=== PATIENT | female | born 1980 | race Caucasian/White ===

== ENCOUNTER 2023-05-21 09:23 | Outpatient (CLI) | payer OTHER, SELFPAY ==
[2023-05-21 10:13] LABS: Prothrombin Time 13.4 Seconds (11.1-14.7)
[2023-05-21 10:17] LABS: Add Urine Microscopic? YES; Appearance Urine Clear (Clear); Bacteria Urine None Seen /hpf; Bilirubin Urine Negative (Negative); Blood Urine 1+ (Negative); Color Urine Yellow (Yellow); Glucose Urine UA Negative (Negative); Ketones Urine Negative (Negative); Leukocyte Esterase Ur Negative LEU/UL (Negative); Nitrate Urine Negative (Negative); Non Pathogenic Casts 0-2; Protein Urine Negative (Negative); Specific Grav Ur 1.013 (1.001-1.035); Squamous Epithelial Cell Urine Few /hpf (Few); Urobilinogen Urine 0.2 mg/dL (<2.0); WBC Urine 0-5 /hpf
== END 2023-05-21 09:24 | disposition home or self-care (01) ==
PROVIDERS: PCP Internal Medicine; Visit Provider Urology
DX: N20.0 Calculus of kidney (principal)
CPT/HCPCS: 36415; 81001; 85610; 85730

== ENCOUNTER 2023-05-22 01:38 | Day surgery (SDC) | payer OTHER, SELFPAY ==
[2023-05-20 14:29] VITALS: BMI 36.1
--- NOTE | 2023-05-20 14:59 | PC.NURSE ---
Addendum entered by Christiano Garrett RN 05/21/23 09:59: PT INSTRUCTED TO NOT TAKE ANY MORE TORADOL PRIOR TO SURGERY. Addendum entered by Wendy Mendez RN 05/20/23 15:10: CORRECTION: TORADOL NEEDED. HYDROCODONE NEEDED. NOT TRAMADOL Original Note: Report to the Outpatient Waiting Room, entrance under the green pavilion located off [facility], at time __12:30_PM____ on date __05/22/23 . Planned Procedure Time: 2:30PM . Time changes happen often and if your time is changed the preop area will call you the afternoon before. - You and your visitor will be asked to self-screen and do not enter if you have any COVID symptoms. - A mask is optional within the hospital at this time. Patients may have clear liquids (water, carbonated beverages, clear teas, apple juice) until 3 hours prior to surgery (11:30AM)with a maximum of 20 ounces. - No food from midnight until time of surgery - Take the following medications with a SIP of water the morning of surgery: ___TRAMADOL NEEDED DO NOT STOP ANY OF YOUR OTHER PRESCRIPTION MEDICATIONS PRIOR TO SURGERY ?EXCEPT THE FOLLOWING Medications to discontinue per physician N/A Date to take last dose___N/A Please no make-up, nail salvadorean, hairspray, perfume, deodorant, or body powder the day of surgery. No jewelry (including any body piercings) or valuables the day of surgery, leave them at home. Please take a shower or bath the night before, or the morning of, surgery with an antibacterial soap. Wear comfortable, loose fitting clothing. - Jewelry must be removed prior to entering the operating room. Rings and piercings that are not removed may be cut off. - The hospital will not accept responsibility for valuables. - Please leave all valuables, including medications, at home the day of surgery. If you are going home after surgery, a licensed road oiling truck driver must drive you home. - NO public transportation without another adult if you receive anesthesia. - We recommend that an adult stay with you for 24 hours following discharge. - We also recommend that you do not drive, make important decision, drink alcoholic beverages, or take any drugs that were not prescribed by your health care provider for at least 24 hours after your discharge time. Follow any additional instructions given to you from your surgeon. If you or anyone in your household have experienced Covid symptoms in the past week, please notify your surgeon or the nurse liaison at the phone number below for possible testing. Telephone instructions given to _CHRISTIANO__and asked if any additional questions and then verbalized understanding. Patient advised to call surgeon office or pre surgery nurse liaison [phone] if any additional questions.
[2023-05-22] VITALS (7 sets, daily range): BP systolic 109–145; BP diastolic 67–92; PULSE 56–91; RESP 14–18; TEMP 36.2–36.7; O2SAT 95–100
--- NOTE | ~2023-05-22 | XR_ITS ---
EXAMINATION: XR abdomen/kub 1V INDICATION: Left kidney stone TECHNIQUE: Supine views of the abdomen were obtained on 2 radiographs. COMPARISON: None FINDINGS: There is an 11 mm stone in the left kidney lower pole. There are phleboliths in the pelvis. No additional urolithiasis is identified. The bowel gas pattern is normal. The visualized lung bases are clear. Surgical clips in the right upper quadrant are likely from prior cholecystectomy. IMPRESSION: 1. 11 mm stone of the left kidney lower pole. Reviewed, dictated and finalized at location B.
--- NOTE | 2023-05-22 07:15 | WPDHPUPDATE1 ---
History and Physical Update Update Date/Time: 05/22/23 07:15 History and Physical has been reviewed, including an updated exam of the patient. There are NO changes in the patient's condition. Risks, benefits, and alternatives have been discussed and questions answered. Patient agrees to proceed with procedure.
--- NOTE | 2023-05-22 09:38 | WPDANESEPPF ---
Anes - Initial Pre Proc Eval Procedure: Operation Date: 05/22/23 14:30 Proposed Procedures p Left Extracorporeal Shock Wave Lithotripsy - Kali Cadet MD s Cystoscopy, Left Ureteroscopy with Stone Extraction, Left Ureteral Stent Placement - Kali Cadet MD Date/Time: 05/22/23 09:38 Surgeon: Kali Cadet MD Pre Op Diagnosis: left kidney stone Patient Data Age: 42 Gender: F Height: 1.73 m Weight: 108 kg Allergies Allergy/AdvReac Type Severity Reaction Status Date / Time Sulfa (Sulfonamide Allergy Intermediate Hives Verified 05/22/23 12:58 Antibiotics) Home Medications Medication Instructions Recorded Confirmed Type hydrocodone 5 mg-acetaminophen 325 1 tablet PO Q6H PRN Pain 05/20/23 05/22/23 History mg tablet ketorolac 10 mg tablet 10 mg PO QID PRN Pain 05/20/23 05/22/23 History sertraline 50 mg tablet 50 mg PO DAILY 05/20/23 05/22/23 History Patient hx anesthesia problems: none Family hx anesthesia problems: none Results Review: All pre-operative results and documents have been reviewed as part of the pre-operative evaluation. [facility] Past Medical History Medical History (Updated 05/22/23 @ 09:40 by Travis Degroot DO) Anxiety Crohn disease Endometriosis Surgical History Surgical History (Updated 05/22/23 @ 09:40 by Travis Degroot DO) History of tonsillectomy History of tubal ligation Social History Social History Smoking packs per day: 0.25 Smoking cigarettes per day: 5.0 Years smoked: 6 Smoking pack-years: 1.50 Smoking status: Former smoker Tobacco type: cigarettes Smoking end date: 09/14/98 Alcohol intake: never Substance use: never Living arrangements: with family Spiritual care concerns: No Anes - Eval Final PreProcedure Day of Procedure 05/22/23 09:38 Patient weight: obese Heart: regular rate and rhythm Lungs: clear to auscultation Airway: Mallampati scale class II Neurological: alert and oriented Last oral intake: >/= 8 hours ASA classification: II Emergent: no Anesthetic plan: proceed Anesthesia type and monitoring: general GIVS and standard monitoring Results Review: All pre-operative results and documents have been reviewed as part of the pre-operative evaluation. Informed Consent: The patient's anesthetic plan and its attendant risks and benefits were discussed with the patient/family/POA. Questions were solicited and answers provided to the satisfaction of the patient/family/POA.
[2023-05-22] MEDS: LACTATED RINGERS 1,000 ML 30 ML IV CONT (13:10)
[2023-05-22] MEDS: ceFAZolin 2 GM/D5W 50 ML 2 GM/50 ML BAG IVPB (14:06)
--- NOTE | 2023-05-22 14:31 | W.PM.PROC2 ---
Procedure Note - Detailed Date of Procedure 05/22/23 Pre-op Diagnosis Left renal and distal ureteral calculi Post-op Diagnosis Same Procedure Performed cystoscopy, left ureteroscopy with stone extraction, left ureteral stent placement, left renal ESWL. Surgeon Kali Cadet MD Anesthesia General Description of Procedure patient brought to the operative suite where she was 1st prepped draped in routine sterile fashion while in dorsal lithotomy position after the uneventful induction of a general LMA anesthetic. Cystoscopy is undertaken with a 19 F for rigid cystoscope. Bladder neck and urethra endoscopically normal. Bladder mucosa is normal. There was no intravesical foreign body or neoplasm. She has a single orthotopic ureteral orifice bilaterally. 0.035 in glidewire was advanced in left renal pelvis in the distal ureter was dilated with an 8 F 10 F dilator. Ureteroscopy was undertaken with a short tapered semi-rigid ureteral scope. A small stone in the distal ureters with which was extracted with a Zero 0.19 F disposable stone basket with ease. I then placed a 4.8 F variable length stent with the proximal coil in the renal pelvis and distal coil in the bladder. She was then repositioned in a supine position. The focal point of the Lithotripter was placed at her mm left calculus and a total of 2500 shocks were delivered a power setting to 4. The patient tolerated the procedure well was taken recovery room good condition. She has an appointment to follow-up in 12 days for stent removal. Drains Yes Packing No Pathology Yes Complications No immediate complications Condition Stable Disposition PACU
[2023-05-22] MEDS: fentaNYL CITRATE INJ (*CRX) 100 MCG/2 ML VIAL 25 MCG IV PUSH ×2 (15:40→15:45)
[2023-05-22] MEDS: diphenhydrAMINE HCl INJ 50 MG/ML VIAL 25 MG IV PUSH (16:08)
[2023-05-22] MEDS: oxyCODONE HCL (*CRX) 5 MG TAB IR PO (16:11)
[2023-05-22] MEDS: KETOROLAC 30 MG/ML VIAL (*BKC) IV PUSH (16:34)
== END 2023-05-22 16:55 | disposition home or self-care (01) ==
PROVIDERS: PCP Internal Medicine; Visit Provider Urology
PROC: (CPT 50590; principal; 2023-05-22 14:30)
PROC: (CPT 52352; 2023-05-22 14:30)
DX: N20.2 Calculus of kidney with calculus of ureter (principal); F41.9 Anxiety disorder, unspecified; Z87.891 Personal history of nicotine dependence; E66.9 Obesity, unspecified; Z68.36 Body mass index [BMI] 36.0-36.9, adult
CPT/HCPCS: 52332; 50590; 74018; 82365; 88300; A9270; C1769; C2617; J0690; J1100; J1200; J1885; J2250; J2405; J2704; J3010; J7030; J7120